=== PATIENT | male | born 1965 | race Caucasian/White ===

== ENCOUNTER → 2022-04-24 | Outpatient (CLI) | payer BC | END | disposition home or self-care (01) | LOC: RAD 16:30 | PROVIDERS: ATTEND Physician Assistant Surgical | DX: N50.3 Cyst of epididymis (principal); N43.3 Hydrocele, unspecified; N50.812 Left testicular pain | CPT/HCPCS: 76870; 93976 ==

== ENCOUNTER 2024-11-12 08:09 | Outpatient (CLI) | payer OTHER ==
--- NOTE | 2024-11-12 13:00 | RADIOLOGY REPORT ---
CLINICAL INDICATION: PAIN IN R SHOULDER COMPARISON: None TECHNIQUE: Multiplanar, multisequence MRI of the right shoulder was performed without contrast. Contrast: None FINDINGS: Glenohumeral joint: There is no fracture or bone marrow edema. Alignment is maintained. Diffuse ch ondral thinning in the humeral head. There is no joint effusion or synovitis. Acromioclavicular joint: The acromioclavicular joint is widened which may be related to acromioplast y. Mild capsular distention. There is a type 2 acromion. Rotator cuff and bursae: There are bone anchors in the humeral head indicating prior rotator cuff rep air. There is full-thickness, full width re-tear of supraspinatus and infraspinatus. There is subsca pularis tendinosis without tear. Teres minor tendons are intact. There is severe infraspinatus muscl e atrophy. No significant supraspinatus muscle atrophy. No fluid distention of the subacromial guthrie bdeltoid bursa. Biceps tendon and glenoid labrum: The long head biceps tendon is absent from the bicipital groove co nsistent with tear and/or possible tenodesis. Diffuse degeneration and chronic tear of the anteri or superior, anterior inferior and posterior superior glenoid labrum. IMPRESSION: 1. Evidence of prior rotator cuff repair. Full-thickness, full width re-tear of supraspinatus and in fraspinatus. Severe infraspinatus muscle atrophy. 2. Absent long head biceps from the bicipital groove which may be related to retracted tear and/or te nodesis. 3. 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 HS:Y
== END 2024-11-12 23:59 | disposition home or self-care (01) ==
LOC: MRI02 08:09
PROVIDERS: ATTEND Orthopaedic Surgery
DX: S46.011A Strain of muscle(s) and tendon(s) of the rotator cuff of right shoulder, initial encounter (principal); M25.511 Pain in right shoulder; X58.XXXA Exposure to other specified factors, initial encounter; Y93.89 Activity, other specified; Y92.89 Other specified places as the place of occurrence of the external cause; Y99.8 Other external cause status
CPT/HCPCS: 73221